=== PATIENT | male | born 2000 | race American Indian/Alaskan Native ===

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

== ENCOUNTER 2019-01-19 12:56 | Emergency (ER) | payer MEDICAID ==
[2019-01-19 12:56] VITALS: BMI 29.9
[2019-01-19 13:31] VITALS: PULSE 78; O2SAT 99
[2019-01-19] MEDS ORDERED: Sodium Chloride 0.9% 1,000 ML IV STA ×2 (14:41→14:57)
[2019-01-19] MEDS ORDERED: Iohexol 240 (50 ml) PO ONE (14:56)
[2019-01-19] MEDS ORDERED: Iohexol 240 (50 ml) ONE (15:07)
--- NOTE | 2019-01-19 15:37 | ED PDOC ---
HPI: Abdomen Time Seen by Provider: 01/19/19 13:41 Chief Complaint (Nursing): Abdominal Pain Chief Complaint (Provider): Abdominal pain History Per: Patient History/Exam Limitations: no limitations Onset/Duration Of Symptoms: Days Outside of [place] travel?: No Current Symptoms Are (Timing): Still Present Location Of Pain/Discomfort: Diffuse, Periumbilical Associated Symptoms: Nausea, Vomiting. denies: Fever, Chills Additional History Per: Patient Additional Complaint(s): 18yo male, otherwise well, comes to ER reporting abdominal pain x 4 days. Patient states he had vomiting and diarrhea which have both resolved; he does state he feels like "spitting up" at times. He also reports diffuse malaise. No new foods or travels. No additional medical complaints. PMD: Dr. Rudolph Leyva Past Medical History Reviewed: Historical Data, Nursing Documentation, Vital Signs Vital Signs: Last Vital Signs Temp 97.8 F 01/19/19 13:25 Pulse 78 01/19/19 13:25 Resp 18 01/19/19 13:25 BP 115/66 01/19/19 13:25 Pulse Ox 99 01/19/19 13:25 - Medical History PMH: Asthma, Bronchitis - Surgical History Surgical History: No Surg Hx - Family History Family History: States: No Known Family Hx, Unknown Family Hx - Social History Current smoker - smoking cessation education provided: No Alcohol: None Drugs: Cannabis (daily) - Home Medications Home Medications: Ambulatory Orders Medication Instructions Recorded Amoxicillin/Clavulanate [Augmentin 1 tab PO BID #20 tab 09/20/14 875 MG-125 MG] RX: Amoxicillin 875 mg PO Q12 #20 tab 11/02/14 Acetaminophen/Codeine Phosph 15 ml PO Q6 PRN #300 ml 08/07/15 [Acetaminophen/Codeine 120 mg/5 ml-12 mg/5 ml ] Amoxicillin [Amoxicillin 250mg/5ml 10 ml PO TID #300 ml 08/07/15 Susp] Ibuprofen Susp [Motrin Oral Susp] 30 ml PO Q8 PRN #500 ml 08/07/15 RX: Hydrocortisone 1% Cream 1 appl TP DAILY #1 tube 09/21/15 [Cortizone 1% Cream] RX: Amoxicillin 500 mg PO BID #14 tablet 02/20/17 Amoxicillin/Clavulanate [Augmentin 1 tab PO Q12H #14 tab 02/23/17 875 MG-125 MG] RX: Lidocaine 2% Viscous 10 ml MM Q4H PRN #1 bottle 02/23/17 Ibuprofen [Motrin Tab] 800 mg PO Q6H PRN #20 tab 08/12/17 Amoxicillin/Clavulanate [Augmentin 1 tab PO BID #20 tab 10/27/17 875 MG-125 MG] Ibuprofen [Motrin] 600 mg PO Q8 PRN #21 tab 10/27/17 RX: Pseudoephedrine [Sudafed Tab] 60 mg PO Q6 PRN #24 tab 10/27/17 RX: Albuterol HFA [Ventolin HFA 90 1 puff IH Q4 PRN #1 inhaler 01/13/18 mcg/actuation (8 g)] guaiFENesin/Dextromethorphan 1 tab PO Q6 #10 tab 01/13/18 [guaiFENesin/DM 600-30 mg] Ibuprofen [Motrin] 600 mg PO Q6H PRN #20 tab 01/19/19 Ondansetron ODT [Zofran ODT] 4 mg PO Q8H PRN #20 odt 01/19/19 - Allergies Allergies/Adverse Reactions: Allergies Allergy/AdvReac Type Severity Reaction Status Date / Time No Known Allergies Allergy Verified 06/24/18 00:33 Review of Systems ROS Statement: Except As Marked, All Systems Reviewed And Found Negative Constitutional: Negative for: Fever, Chills Cardiovascular: Negative for: Chest Pain Respiratory: Negative for: Shortness of Breath Gastrointestinal: Positive for: Abdominal Pain Physical Exam - Reviewed Nursing Documentation Reviewed: Yes Vital Signs Reviewed: Yes - Physical Exam Appears: Positive for: Non-toxic, No Acute Distress Head Exam: Positive for: ATRAUMATIC, NORMAL INSPECTION, NORMOCEPHALIC Skin: Positive for: Normal Color, Warm Eye Exam: Positive for: Normal appearance ENT: Positive for: Normal ENT Inspection. Negative for: Pharyngeal Erythema Neck: Positive for: Supple Cardiovascular/Chest: Positive for: Regular Rate, Rhythm. Negative for: Murmur Respiratory: Positive for: Normal Breath Sounds. Negative for: Wheezing Gastrointestinal/Abdominal: Positive for: Normal Exam, Bowel Sounds, Soft, Tenderness (lower abdominal tenderness). Negative for: Distended, Guarding, Rebound Back: Positive for: Normal Inspection. Negative for: L CVA Tenderness, R CVA Tenderness Extremity: Positive for: Normal ROM Neurologic/Psych: Positive for: Alert, Oriented. Negative for: Motor/Sensory Deficits - Laboratory Results Result Diagrams: 01/19/19 15:20 01/19/19 15:20 - ECG O2 Sat by Pulse Oximetry: 99 (RA) Pulse Ox Interpretation: Normal Medical Decision Making Medical Decision Making: Impression: Abdominal pain, lower, rule out appendicitis, uti Plan: -- Labs -- CT A/P w/ IV Contrast -- Urinalysis -- Tramadol 15mg IV -- Zofran 4mg IV 1600 Patient signed out to Dr. Arboleda pending CT, labs, reassessment. Scribe Attestation: Documented by Andra Kim acting as a scribe for Kassidy Adams MD. Provider Attestation: All medical record entries made by the Scribe were at my direction and personally dictated by me. I have reviewed the chart and agree that the record accurately reflects my personal performance of the history, physical exam, medical decision making, and the department course for this patient. I have also personally directed, reviewed, and agree with the discharge instructions and disposition. Disposition - Clinical Impression Clinical Impression: Abdominal pain - Patient ED Disposition Is Patient to be Admitted: Transfer of Care - Disposition Referrals: [facility] [Outside] Disposition: Transfer of Care Disposition Time: 16:00 Condition: STABLE Prescriptions: Ibuprofen [Motrin] 600 mg PO Q6H PRN #20 tab PRN Reason: Pain, Moderate (4-7) Ondansetron ODT [Zofran ODT] 4 mg PO Q8H PRN #20 odt PRN Reason: Nausea/Vomiting Instructions: Acute Abdomen (Belly Pain) Forms: [employer] (Swedish) Patient Signed Over To: Chen Arboleda
[2019-01-19 15:55] LABS: BASO % 0.3 % (0.0-2.0); EOS % 0.2 % (0.0-4.0); HEMOGLOBIN 15.9 g/dL (12.0-18.0); LYMPH # 1.3 K/uL (1.0-4.3); MEAN CELL VOLUME 87.4 fl (80.0-94.0); MEAN CORPUSCULAR HEMOGLOBIN 29.9 pg (27.0-31.0); MEAN CORPUSCULAR HGB CONC 34.2 g/dL (33.0-37.0); MEAN PLATELET VOLUME 9.3 fl (7.2-11.7); MONO # 0.7 K/uL (0.0-0.8); MONO % 13.1 % (0.0-10.0); NEUT # 3.4 K/uL (1.8-7.0); NEUT % 62.4 % (50.0-75.0); NRBC % 0.3 % (0.0-0.0); RBC 5.32 Mil/uL (4.40-5.90); RED CELL DISTRIBUTION WIDTH 12.5 % (11.5-14.5); WHITE BLOOD COUNT 5.4 K/uL (4.8-10.8)
[2019-01-19 16:08] LABS: ALB/GLOB RATIO 1.4 (1.0-2.1); ALBUMIN 4.5 g/dL (3.5-5.0); ALT/SGPT 57 U/L (21-72); AST/SGOT 42 U/L (17-59); BLOOD UREA NITROGEN 11 mg/dl (9-20); CALCIUM 9.6 mg/dL (8.4-10.2); GFR NON-AFRICAN AMERICAN > 60; LIPASE 84 U/L (23-300)
--- NOTE | 2019-01-19 16:17 | ED PDOC ---
- Laboratory Results Result Diagrams: 01/19/19 15:20 01/19/19 15:20 Lab Results: Total Bilirubin 1.6 mg/dl (0.2-1.3) H 01/19/19 15:20 AST 42 U/L (17-59) 01/19/19 15:20 ALT 57 U/L (21-72) 01/19/19 15:20 Alkaline Phosphatase 59 U/L (38-126) 01/19/19 15:20 Total Protein 7.8 G/DL (6.3-8.2) 01/19/19 15:20 Albumin 4.5 g/dL (3.5-5.0) 01/19/19 15:20 Globulin 3.3 gm/dL (2.2-3.9) 01/19/19 15:20 Albumin/Globulin Ratio 1.4 (1.0-2.1) 01/19/19 15:20 Lipase 84 U/L (23-300) 01/19/19 15:20 - ECG O2 Sat by Pulse Oximetry: 99 (RA) Pulse Ox Interpretation: Normal Medical Decision Making Medical Decision Making: Receiving sign out: Patient signed out to me by Dr. Adams at 1600 [address] labs, CT, reassessment. 1652 labs reviewed, no clinically significant abnormalities noted. Patient pending CT scan 184 CT A/P FINDINGS: LOWER THORAX: Unremarkable. LIVER: Unremarkable. No gross lesion or ductal dilatation. GALLBLADDER AND BILE DUCTS: Unremarkable. PANCREAS: Unremarkable. No gross lesion or ductal dilatation. SPLEEN: Unremarkable. ADRENALS: Unremarkable. No mass. KIDNEYS AND URETERS: Unremarkable. No hydronephrosis. No solid mass. VASCULATURE: Unremarkable. No aortic aneurysm. No atherosclerotic calcification or mural plaque present. BOWEL: Unremarkable. No obstruction. No gross mural thickening. APPENDIX: Normal appendix. PERITONEUM: Unremarkable. No free fluid. No free air. LYMPH NODES: Unremarkable. No enlarged lymph nodes. BLADDER: Unremarkable. REPRODUCTIVE: Unremarkable. BONES: No acute fracture. OTHER FINDINGS: None. IMPRESSION: Unremarkable contrast enhanced CT of the abdomen and pelvis. Limitations of the current study: Absence of intravenous contrast. Extravasation occurred during injection. Emergency department personal were notified and elected not to reinject the patient. Notified by time study technologist that IV contrast extravasated into L arm. Arm examined, + erythema, not tense, +2 radial pulse, sensation intact, MS 5/5, ice pack placed. [address] results. Patient pending urinalysis, however he refuses the study, patient wishes to go home. Patient informed to follow up with PMD in 2-3 days, and return precautions given. Scribe Attestation: Documented by Andra Kim acting as a scribe for Chen Arboleda MD. Provider Attestation: All medical record entries made by the Scribe were at my direction and personally dictated by me. I have reviewed the chart and agree that the record accurately reflects my personal performance of the history, physical exam, medical decision making, and the department course for this patient. I have also personally directed, reviewed, and agree with the discharge instructions and disposition. Disposition Counseled Patient/Family Regarding: Studies Performed, Diagnosis, Need For Followup - Clinical Impression Clinical Impression: Abdominal pain - POA Present On Arrival: None - Disposition Referrals: [facility] [Outside] Disposition: Routine/Home Disposition Time: 19:30 Condition: STABLE Prescriptions: Ibuprofen [Motrin] 600 mg PO Q6H PRN #20 tab PRN Reason: Pain, Moderate (4-7) Ondansetron ODT [Zofran ODT] 4 mg PO Q8H PRN #20 odt PRN Reason: Nausea/Vomiting Instructions: Acute Abdomen (Belly Pain) Forms: [employer] (Azerbaijani)
[2019-01-19] MEDS ORDERED: Iohexol 300 100 ML IJ ONE (16:40)
[2019-01-19] MEDS ORDERED: Sodium Chloride 0.9% 50 ML IV ONE (16:40)
--- NOTE | 2019-01-19 18:22 | CT ---
Date of service: 01/19/2019 PROCEDURE: CT Abdomen and Pelvis with contrast HISTORY: abd pain lower COMPARISON: None. TECHNIQUE: Oral contrast only. Radiation dose: Total exam DLP = <inf_radiation_dlp> mGy-cm. This CT exam was performed using one or more of the following dose reduction techniques: Automated exposure control, adjustment of the mA and/or kV according to patient size, and/or use of iterative reconstruction technique. FINDINGS: LOWER THORAX: Unremarkable. LIVER: Unremarkable. No gross lesion or ductal dilatation. GALLBLADDER AND BILE DUCTS: Unremarkable. PANCREAS: Unremarkable. No gross lesion or ductal dilatation. SPLEEN: Unremarkable. ADRENALS: Unremarkable. No mass. KIDNEYS AND URETERS: Unremarkable. No hydronephrosis. No solid mass. VASCULATURE: Unremarkable. No aortic aneurysm. No atherosclerotic calcification or mural plaque present. BOWEL: Unremarkable. No obstruction. No gross mural thickening. APPENDIX: Normal appendix. PERITONEUM: Unremarkable. No free fluid. No free air. LYMPH NODES: Unremarkable. No enlarged lymph nodes. BLADDER: Unremarkable. REPRODUCTIVE: Unremarkable. BONES: No acute fracture. OTHER FINDINGS: None. IMPRESSION: Unremarkable contrast enhanced CT of the abdomen and pelvis. Limitations of the current study: Absence of intravenous contrast. Extravasation occurred during injection. Emergency department personal were notified and elected not to reinject the patient.
[2019-01-19 19:31] VITALS: BP 120/60; RESP 16
[2019-01-19 19:42] VITALS: TEMP 98.1
== END 2019-01-19 19:35 | disposition home or self-care (01) ==
LOC: H.ER 12:56
DX: R10.9 Unspecified abdominal pain (principal)
CPT/HCPCS: 74177; 80053; 83690; 85025; 96374; 99283; J1885; J2405; J7030; Q9966; Q9967